=== PATIENT | female | born 1935 | race Caucasian/White ===

== ENCOUNTER 2023-12-11 05:01 | Inpatient (IN) | payer MEDICARE, MEDICAID ==
[~2023-12-11] VITALS: Ht 162.6 cm; Wt 64.5 kg
[2023-12-11] VITALS (9 sets, daily range): BP systolic 84–115; BP diastolic 58–80; PULSE 93–109; RESP 15–22; TEMP 35.5584–36.6404; O2SAT 98–100
[~2023-12-11 05:01] MED LIST: ALBU6.7H3 INH; ALBUTEROL; ASPI-1406 PO; ATOR10TA69 PO; BECL10.62 INH; CHOL400D7 PO; CODE473S7 MT; FURO-151 MT; GUAI118S13 MT; HYDR-4001 MT; IPRA3AMP31 NEB; LEVO-65 MT; LISI-186 MT; METH4TAB95 MT; METO-385 PO; MONT-39 MT; MONTELUKAST; OMEP20CA14 MT; OMEP20CA14 PO; QVAR; XAR15 PO
[2023-12-11] MEDS: SODIUM CHLORIDE 0.9% 1000ML BAG (SEPSIS BOLUS) IV ONE (05:44)
[2023-12-11] MEDS: ONDANSETRON HCL 4MG/2ML INJ IV ONE (05:49)
[2023-12-11] MEDS: MORPHINE SULFATE 2 MG/ML INJ (NOT FOR IM USE) IV ONE (05:49)
[2023-12-11] MEDS: PIPERACILLIN/TAZO 3.375G/50ML 50 ML IV ONE (05:57)
[2023-12-11 06:16] LABS: CHLORIDE 93 mEq/L (98-107); POTASSIUM 4.5 mEq/L (3.5-5.1); SODIUM 129 mEq/L (136-145)
[2023-12-11 06:17] LABS: CARBON DIOXIDE 26 mEq/L (21-32)
[2023-12-11 06:18] LABS: CALCIUM 9.2 mg/dL (8.7-10.4); HEMATOCRIT. 28.4 % (36.0-48.0); HEMOGLOBIN. 9.1 g/dL (12.0-16.0); MEAN CORPUSCULAR HEMOGLOBIN 24.9 pg (28.0-32.0); MEAN CORPUSCULAR VOLUME 77.8 fL (81.0-99.0); MEAN PLATELET VOLUME 8.4 fl (7.4-10.4); PLATELET 451 x1000/uL (130-400); RED BLOOD CELL COUNT 3.66 mill/uL (4.2-5.4); RED CELL DISTRIBUTION WIDTH 16.6 % (11.6-14.6); WHITE BLOOD COUNT 17.9 x1000/uL (4.5-11.0)
[2023-12-11 06:22] LABS: GLUCOSE 104 mg/dL (70-105)
[2023-12-11 06:23] LABS: TROPONIN I HIGH SENSITIVITY 32 ng/L (3.0-34); UREA NITROGEN BLOOD 78 mg/dL (9-23)
[2023-12-11 06:24] LABS: ALANINE AMINOTRANSFERASE 10 IU/L (10-49); ALBUMIN 3.2 g/dL (3.2-4.8); ASPARTATE AMINOTRANSFERASE 15 IU/L (<34)
[2023-12-11 06:25] LABS: BILIRUBIN DIRECT 0.5 mg/dL (<=3.0)
[2023-12-11 06:29] LABS: CREATININE 2.3 mg/dL (0.6-1.0)
[2023-12-11 06:34] LABS: DIFFERENTIAL COMMENT 1
[2023-12-11] MEDS: VANCOMYCIN 1G PREMIX 200 ML IV ONE (06:36)
[2023-12-11 06:37] LABS: INR 1.5; PROTHROMBIN TIME 16.3 sec (9.6-11.0)
[2023-12-11 08:46] LABS: CLARITY URINE CLOUDY (CLEAR); COLOR URINE DARK YELLOW (YELLOW); GLUCOSE URINE NEGATIVE (NEGATIVE); KETONES URINE NEGATIVE (NEGATIVE); LEUKOCYTE ESTERASE URINE 1+ (NEGATIVE); NITRITE URINE NEGATIVE (NEGATIVE); OCCULT BLOOD URINE 2+ (NEGATIVE); PROTEIN URINE NEGATIVE (NEGATIVE); SPECIFIC GRAVITY URINE 1.011 (1.005-1.030); UROBILINOGEN URINE 0.2 E.U./dL (0.2-1.0)
[2023-12-11 08:55] LABS: BACTERIA URINE 1+; RBC URINE 50-100 /hpf (0-2); WBC URINE 15-25 /hpf (0-2); YEAST URINE NONE SEEN
[2023-12-11 08:56] LABS: SQUAMOUS EPITHELIAL CELL URINE FEW /lpf (RARE/1+)
[2023-12-11] MEDS ORDERED: CLONIDINE 0.1MG TABLET PO PRN (10:00)
[2023-12-11] MEDS ORDERED: IPRATROPIUM/ALBUTEROL 0.5-3(2.5)MG/3ML NEB HHN PRN (10:00)
[2023-12-11] MEDS ORDERED: ONDANSETRON HCL 4MG/2ML INJ IV PRN (10:00)
[2023-12-11 11:04] LABS: ANISOCYTOSIS 1+; MICROCYTOSIS 1+; PLATELET ESTIMATE INCREASED
[2023-12-11] MEDS: LACTULOSE 20G/30ML UDC PO SCH (13:11)
[2023-12-11] MEDS: CEFTRIAXONE 1GM/50ML 50 ML IV SCH (13:11)
[2023-12-11] MEDS: SODIUM CHLORIDE 0.9% 1,000 ML IV SCH (16:00)
[2023-12-11] MEDS: BISACODYL 5MG TABLET PO NR (17:44)
[2023-12-11] MEDS: BISACODYL 10MG SUPP PR NR (17:45)
[2023-12-11] MEDS: POLYETHYLENE GLYCOL 3350 (17GM) 1 DOSE PACK PO SCH (17:47)
[2023-12-11] MEDS: IPRATROPIUM/ALBUTEROL 0.5-3(2.5)MG/3ML NEB HHN SCH (20:46)
[2023-12-11] MEDS: BUDESONIDE 0.5MG/2ML NEB HHN SCH (20:46)
[2023-12-11] MEDS: SENNOSIDES/DOCUSATE SOD 8.6/50MG TABLET PO SCH (21:36)
[2023-12-11] MEDS: ACETYLCYSTEINE 200MG/ML 20% VIAL 4ML INH SCH (22:00)
[2023-12-12] VITALS (11 sets, daily range): BP systolic 83–114; BP diastolic 45–61; PULSE 87–119; RESP 14–24; TEMP 35.5584–37.00296; O2SAT 2–100
[2023-12-12 08:23] LABS: CHLORIDE 102 mEq/L (98-107); POTASSIUM 4.2 mEq/L (3.5-5.1); SODIUM 136 mEq/L (136-145)
[2023-12-12] MEDS: FAMOTIDINE 20MG/2ML VIAL IV SCH (08:25)
[2023-12-12 08:26] LABS: CALCIUM 8.9 mg/dL (8.7-10.4); CARBON DIOXIDE 26 mEq/L (21-32); HEMATOCRIT. 25.7 % (36.0-48.0); HEMOGLOBIN. 8.2 g/dL (12.0-16.0); MEAN CORPUSCULAR HEMOGLOBIN 24.9 pg (28.0-32.0); MEAN CORPUSCULAR HGB CONC 31.9 g/dL (31.0-37.0); MEAN CORPUSCULAR VOLUME 78.2 fL (81.0-99.0); MEAN PLATELET VOLUME 8.6 fl (7.4-10.4); PLATELET 349 x1000/uL (130-400); RED BLOOD CELL COUNT 3.29 mill/uL (4.2-5.4); RED CELL DISTRIBUTION WIDTH 16.7 % (11.6-14.6)
[2023-12-12 08:31] LABS: GLUCOSE 77 mg/dL (70-105); UREA NITROGEN BLOOD 48 mg/dL (9-23)
[2023-12-12 08:32] LABS: ALANINE AMINOTRANSFERASE < 7 IU/L (10-49)
[2023-12-12 08:33] LABS: ALBUMIN 2.8 g/dL (3.2-4.8); ASPARTATE AMINOTRANSFERASE 13 IU/L (<34); BILIRUBIN DIRECT 0.3 mg/dL (<=3.0); BILIRUBIN TOTAL 0.6 mg/dL (0.1-1.0); PHOSPHORUS 5.1 mg/dL (2.5-4.9); THYROID STIMULATING HORMONE 2.44 uIU/mL (0.55-4.78)
[2023-12-12 08:34] LABS: PROTEIN TOTAL 5.1 g/dL (6.0-8.3)
[2023-12-12 08:49] LABS: CREATININE 1.3 mg/dL (0.6-1.0)
[2023-12-12 08:52] LABS: DIFFERENTIAL COMMENT 1
[2023-12-12] MEDS: CEFTRIAXONE 1GM/50ML 50 ML IV SCH (11:18)
[2023-12-12] MEDS: METOPROLOL TARTRATE 50MG TABLET PO SCH (17:15)
[2023-12-12] MEDS: MELATONIN 3MG TABLET PO SCH (21:12)
[2023-12-13] VITALS (8 sets, daily range): BP systolic 97–131; BP diastolic 38–69; PULSE 80–112; RESP 18–24; TEMP 36.114–36.50292; O2SAT 95–98
[2023-12-13 02:52] LABS: HYPOCHROMASIA 1+; MICROCYTOSIS 1+; PLATELET ESTIMATE NORMAL
[2023-12-13 09:06] LABS: ALPHA FETOPROTEIN TUMOR MARKER < 1.8 ng/mL (0.0-8.7); CA 19-9 11 U/mL (0-35); CARCINOEMBRYONIC AG - SEND OUT 7.1 ng/mL (0.0-4.7)
[2023-12-13] MEDS ORDERED: SODIUM CHLORIDE 0.9% 500 ML IV NR (10:45)
[2023-12-13] MEDS: ASPIRIN 81MG TABLET PO SCH (14:19)
[2023-12-13] MEDS: SODIUM CHLORIDE 0.9% 1,000 ML IV ONE (19:46)
[2023-12-13] MEDS: ATORVASTATIN CALCIUM 20MG TABLET PO SCH (20:51)
[2023-12-13] MEDS: GUAIFENESIN 200MG/10ML SUGAR FREE UDC PO PRN (20:51)
[2023-12-13] MEDS: DIPHENHYDRAMINE 50MG/ML VIAL IV PRN (23:20)
[2023-12-14] VITALS (9 sets, daily range): BP systolic 111–134; BP diastolic 57–81; PULSE 74–118; RESP 17–18; TEMP 36.22512–36.33624; O2SAT 95–100
[2023-12-14 07:20] LABS: CARBON DIOXIDE 23 mEq/L (21-32); CHLORIDE 109 mEq/L (98-107); POTASSIUM 3.9 mEq/L (3.5-5.1); SODIUM 142 mEq/L (136-145)
[2023-12-14 07:25] LABS: CREATININE 0.7 mg/dL (0.6-1.0)
[2023-12-14 07:26] LABS: GLUCOSE 69 mg/dL (70-105); UREA NITROGEN BLOOD 19 mg/dL (9-23)
[2023-12-14 07:28] LABS: PHOSPHORUS 2.4 mg/dL (2.5-4.9)
[2023-12-14 08:18] LABS: HEMOGLOBIN. 8.1 g/dL (12.0-16.0); MEAN CORPUSCULAR HGB CONC 31.2 g/dL (31.0-37.0); MEAN PLATELET VOLUME 8.2 fl (7.4-10.4); PLATELET 376 x1000/uL (130-400); RED BLOOD CELL COUNT 3.26 mill/uL (4.2-5.4); RED CELL DISTRIBUTION WIDTH 16.9 % (11.6-14.6); WHITE BLOOD COUNT 9.2 x1000/uL (4.5-11.0)
[2023-12-14 08:43] LABS: DIFFERENTIAL COMMENT 1
[2023-12-14 13:57] LABS: ANISOCYTOSIS 1+; NUCLEATED RED BLOOD CELLS 1 /100 WBC; PLATELET ESTIMATE NORMAL
[2023-12-15] VITALS (9 sets, daily range): BP systolic 109–151; BP diastolic 61–97; PULSE 72–113; RESP 17–20; TEMP 36.00288–37.16964; O2SAT 97–99
[2023-12-15 06:24] LABS: CALCIUM 9.9 mg/dL (8.7-10.4); CARBON DIOXIDE 24 mEq/L (21-32); CHLORIDE 108 mEq/L (98-107); POTASSIUM 3.8 mEq/L (3.5-5.1); SODIUM 140 mEq/L (136-145)
[2023-12-15 06:30] LABS: CREATININE 0.7 mg/dL (0.6-1.0); GLUCOSE 65 mg/dL (70-105); HEMATOCRIT. 28.6 % (36.0-48.0); HEMOGLOBIN. 9.1 g/dL (12.0-16.0); MEAN CORPUSCULAR HEMOGLOBIN 25.4 pg (28.0-32.0); MEAN CORPUSCULAR HGB CONC 31.9 g/dL (31.0-37.0); MEAN CORPUSCULAR VOLUME 79.7 fL (81.0-99.0); MEAN PLATELET VOLUME 8.1 fl (7.4-10.4); PLATELET 423 x1000/uL (130-400); RED BLOOD CELL COUNT 3.59 mill/uL (4.2-5.4); RED CELL DISTRIBUTION WIDTH 16.8 % (11.6-14.6); UREA NITROGEN BLOOD 16 mg/dL (9-23)
[2023-12-15 06:32] LABS: PHOSPHORUS 2.7 mg/dL (2.5-4.9)
[2023-12-15 07:46] LABS: DIFFERENTIAL COMMENT 1
[2023-12-15 21:07] LABS: ANISOCYTOSIS 1+; MICROCYTOSIS 1+; PLATELET ESTIMATE INCREASED
[2023-12-16] VITALS (8 sets, daily range): BP systolic 118–145; BP diastolic 61–75; PULSE 65–119; RESP 16–20; TEMP 36.114–36.28068; O2SAT 95–98
[2023-12-16 06:33] LABS: CARBON DIOXIDE 23 mEq/L (21-32); CHLORIDE 108 mEq/L (98-107); POTASSIUM 3.5 mEq/L (3.5-5.1); SODIUM 140 mEq/L (136-145)
[2023-12-16 06:35] LABS: CALCIUM 10.2 mg/dL (8.7-10.4)
[2023-12-16 06:39] LABS: CREATININE 0.5 mg/dL (0.6-1.0); GLUCOSE 55 mg/dL (70-105); UREA NITROGEN BLOOD 12 mg/dL (9-23)
[2023-12-16 06:43] LABS: BASOPHILS % 0.1 % (0.0-2.0); DIFFERENTIAL COMMENT 0; EOSINOPHILS % 1.2 % (0.0-5.0); HEMATOCRIT. 26.4 % (36.0-48.0); HEMOGLOBIN. 8.3 g/dL (12.0-16.0); LYMPHOCYTES % 7.8 % (20.0-50.0); MEAN CORPUSCULAR HEMOGLOBIN 24.8 pg (28.0-32.0); MEAN CORPUSCULAR HGB CONC 31.4 g/dL (31.0-37.0); MEAN PLATELET VOLUME 7.9 fl (7.4-10.4); MONOCYTES % 7.6 % (2.0-8.0); NEUTROPHILS % 83.3 % (40.0-76.0); PLATELET 392 x1000/uL (130-400); RED BLOOD CELL COUNT 3.34 mill/uL (4.2-5.4); RED CELL DISTRIBUTION WIDTH 17.1 % (11.6-14.6); WHITE BLOOD COUNT 7.1 x1000/uL (4.5-11.0)
[2023-12-16] MEDS ORDERED: MELATONIN 3MG TABLET PO SCH (21:00)
[2023-12-17] VITALS: BP 109/59; PULSE 82; RESP 18; TEMP 36.16956; O2SAT 100
[2023-12-17 04:00] VITALS: BP 142/70; PULSE 96; RESP 18; TEMP 36.114; O2SAT 96
[2023-12-17 08:00] VITALS: BP 128/76; PULSE 79; RESP 16; TEMP 36.72516; O2SAT 96
[2023-12-17] MEDS: SODIUM CHLORIDE 0.9% 1,000 ML IV SCH (10:00)
[2023-12-17 12:00] VITALS: BP 94/58; PULSE 102; RESP 22; TEMP 37.00296; O2SAT 95
[2023-12-17 16:00] VITALS: BP 130/79; PULSE 79; RESP 16; TEMP 37.2252; O2SAT 99
[2023-12-17 20:00] VITALS: BP 116/52; PULSE 100; RESP 20; TEMP 36.22512; O2SAT 96
[2023-12-18] VITALS (7 sets, daily range): BP systolic 119–147; BP diastolic 59–82; PULSE 80–108; RESP 18–20; TEMP 36.114–36.61404; O2SAT 94–98
[2023-12-18 06:56] LABS: BASOPHILS % 0.3 % (0.0-2.0); DIFFERENTIAL COMMENT 0; EOSINOPHILS % 0.6 % (0.0-5.0); HEMATOCRIT. 28.7 % (36.0-48.0); HEMOGLOBIN. 9.1 g/dL (12.0-16.0); LYMPHOCYTES % 9.9 % (20.0-50.0); MEAN CORPUSCULAR HEMOGLOBIN 24.8 pg (28.0-32.0); MEAN CORPUSCULAR HGB CONC 31.6 g/dL (31.0-37.0); MEAN CORPUSCULAR VOLUME 78.6 fL (81.0-99.0); MEAN PLATELET VOLUME 7.8 fl (7.4-10.4); NEUTROPHILS % 80.2 % (40.0-76.0); PLATELET 426 x1000/uL (130-400); RED BLOOD CELL COUNT 3.66 mill/uL (4.2-5.4); RED CELL DISTRIBUTION WIDTH 17.6 % (11.6-14.6)
[2023-12-18 07:04] LABS: CALCIUM 10.8 mg/dL (8.7-10.4); CHLORIDE 110 mEq/L (98-107); POTASSIUM 3.7 mEq/L (3.5-5.1); SODIUM 143 mEq/L (136-145)
[2023-12-18 07:05] LABS: CARBON DIOXIDE 26 mEq/L (21-32)
[2023-12-18 07:10] LABS: CREATININE 0.7 mg/dL (0.6-1.0); GLUCOSE 125 mg/dL (70-105); UREA NITROGEN BLOOD 16 mg/dL (9-23)
[2023-12-18 07:12] LABS: PHOSPHORUS 2.3 mg/dL (2.5-4.9)
[2023-12-19] VITALS: BP 127/69; PULSE 114; RESP 19; TEMP 36.61404; O2SAT 95
[2023-12-19 04:00] VITALS: BP 115/50; PULSE 99; RESP 19; TEMP 36.61404; O2SAT 99
[2023-12-19 08:26] VITALS: BP 97/44; PULSE 103; RESP 18; TEMP 36.3918; O2SAT 92
[2023-12-19 12:04] VITALS: BP 102/42; PULSE 86; RESP 19; TEMP 36.61404; O2SAT 97
[2023-12-19 16:46] VITALS: BP 93/47; PULSE 105; RESP 19; TEMP 36.61404; O2SAT 91
[2023-12-19 20:00] VITALS: BP 114/59; PULSE 120; RESP 20; TEMP 38.72532; O2SAT 96
[2023-12-19] MEDS: ACETAMINOPHEN 325MG TABLET PO PRN (21:09)
[2023-12-20] VITALS: BP 105/53; PULSE 97; RESP 20; TEMP 37.33632; O2SAT 96
[2023-12-20 04:00] VITALS: BP 115/64; PULSE 88; RESP 18; TEMP 37.2252; O2SAT 98
[2023-12-20 08:24] VITALS: BP 107/41; PULSE 79; RESP 18; TEMP 36.28068; O2SAT 91
[2023-12-20 11:42] VITALS: BP 126/72; PULSE 100; RESP 20; TEMP 36.33624; O2SAT 92
[2023-12-20 16:08] VITALS: BP 122/75; PULSE 109; RESP 18; TEMP 36.3918; O2SAT 92
[2023-12-20 20:00] VITALS: BP 114/60; PULSE 88; RESP 20; TEMP 37.28076; O2SAT 98
[2023-12-21] VITALS: BP 116/68; PULSE 97; RESP 18; TEMP 37.16964; O2SAT 99
[2023-12-21 04:00] VITALS: BP 120/75; PULSE 88; RESP 20; TEMP 37.2252; O2SAT 98
[2023-12-21 08:00] VITALS: BP 123/61; PULSE 79; RESP 16; TEMP 36.44736; O2SAT 98
[2023-12-21 10:06] LABS: POTASSIUM 4.3 mEq/L (3.5-5.1)
[2023-12-21] MEDS ORDERED: SENN1TAB35 PO (10:54)
[2023-12-21] MEDS ORDERED: ATOR20TA PO (10:54)
[2023-12-21] MEDS ORDERED: FAMO20TA8 MT (10:54)
[2023-12-21] MEDS ORDERED: POLY17PO43 PO (10:54)
[2023-12-21 12:00] VITALS: BP 97/62; PULSE 90; RESP 16; TEMP 36.05844; O2SAT 96
[2023-12-21 16:00] VITALS: BP 104/65; PULSE 101; RESP 18; TEMP 36.05844; O2SAT 96
[2023-12-21 20:00] VITALS: BP 108/56; PULSE 101; RESP 20; TEMP 36.50292; O2SAT 98
[2023-12-22] VITALS: BP 110/54; PULSE 96; RESP 18; TEMP 36.72516; O2SAT 96
[2023-12-22 04:38] VITALS: BP 113/70; PULSE 106; RESP 18; TEMP 37.00296; O2SAT 100
[2023-12-22 08:00] VITALS: BP 105/62; PULSE 117; RESP 20; TEMP 36.3918; O2SAT 99
[2023-12-22 11:18] LABS: BASOPHILS % 0.3 % (0.0-2.0); DIFFERENTIAL COMMENT 0; HEMATOCRIT. 29.2 % (36.0-48.0); HEMOGLOBIN. 8.7 g/dL (12.0-16.0); LYMPHOCYTES % 7.7 % (20.0-50.0); MEAN CORPUSCULAR HEMOGLOBIN 24.8 pg (28.0-32.0); MEAN CORPUSCULAR HGB CONC 29.8 g/dL (31.0-37.0); MEAN CORPUSCULAR VOLUME 83.2 fL (81.0-99.0); MEAN PLATELET VOLUME 8.1 fl (7.4-10.4); PLATELET 360 x1000/uL (130-400); RED BLOOD CELL COUNT 3.51 mill/uL (4.2-5.4); RED CELL DISTRIBUTION WIDTH 18.6 % (11.6-14.6); WHITE BLOOD COUNT 14.4 x1000/uL (4.5-11.0)
[2023-12-22 11:22] LABS: POTASSIUM 5.2 mEq/L (3.5-5.1)
[2023-12-22 11:23] LABS: CALCIUM 10.7 mg/dL (8.7-10.4)
[2023-12-22 11:28] LABS: CREATININE 1.1 mg/dL (0.6-1.0)
[2023-12-22 12:00] VITALS: BP 101/57; PULSE 85; RESP 18; TEMP 36.28068; O2SAT 100
[2023-12-22 16:00] VITALS: BP 102/56; PULSE 92; RESP 18; TEMP 36.114; O2SAT 99
[2023-12-22 20:00] VITALS: BP 99/56; PULSE 67; RESP 18; TEMP 37.61412; O2SAT 99
[2023-12-23] VITALS: BP 116/59; PULSE 70; RESP 20; TEMP 37.2252; TEMP 37.22520; O2SAT 100
[2023-12-23 01:55] VITALS: BP 116/59; PULSE 70; TEMP 99; O2SAT 100
== END 2023-12-23 04:35 | disposition home or self-care (01) | DRG 871 ==
LOC: ER 05:01 → 5EST 07:58 → EDBEDREQTM 08:01 → EDBEDREQ 08:01 → EDBEDREQSVC 08:01 → 7WST 12-12 17:48
PROVIDERS: ADMIT Internal Medicine; ATTEND Internal Medicine
DX: A41.9 Sepsis, unspecified organism (principal); J18.9 Pneumonia, unspecified organism; J96.90 Respiratory failure, unspecified, unspecified whether with hypoxia or hypercapnia; E87.1 Hypo-osmolality and hyponatremia; E87.20 Acidosis, unspecified; J45.901 Unspecified asthma with (acute) exacerbation; N13.6 Pyonephrosis; N17.9 Acute kidney failure, unspecified; J47.0 Bronchiectasis with acute lower respiratory infection; D64.9 Anemia, unspecified; K56.41 Fecal impaction; R65.20 Severe sepsis without septic shock; I48.91 Unspecified atrial fibrillation; F03.90 Unspecified dementia, unspecified severity, without behavioral disturbance, psychotic disturbance, mood disturbance, and anxiety; I35.0 Nonrheumatic aortic (valve) stenosis; N32.89 Other specified disorders of bladder; R63.0 Anorexia; K62.89 Other specified diseases of anus and rectum; I12.9 Hypertensive chronic kidney disease with stage 1 through stage 4 chronic kidney disease, or unspecified chronic kidney disease; E78.00 Pure hypercholesterolemia, unspecified; E86.1 Hypovolemia; N18.9 Chronic kidney disease, unspecified; K21.9 Gastro-esophageal reflux disease without esophagitis; R53.81 Other malaise; J42 Unspecified chronic bronchitis; Z90.49 Acquired absence of other specified parts of digestive tract; Z74.01 Bed confinement status; Z82.49 Family history of ischemic heart disease and other diseases of the circulatory system; Z79.01 Long term (current) use of anticoagulants
CPT/HCPCS: 36415; 71045; 71250; 74176; 80048; 80076; 81003; 82105; 82378; 82533; 82962; 83605; 83735; 83880; 83935; 84100; 84132; 84145; 84443; 84484; 85025; 86301; 86850; 86900; 92610; 93005; 93970; 94640; 97162; 99291; A6261; C1893; J0696; J1200; J2270; J2405; J2543; J3370; J3490; J7030; J7608; J7626